=== PATIENT | male | born 1970 ===

== ENCOUNTER 2022-01-26 09:58 | Outpatient (CLI) | payer OTHER, SELFPAY ==
--- OUTSIDE RECORDS SUMMARY | 2022-01-26 09:59 | XMS_ITS | Clinical Summary ---
:1970 Author Organization [facility] [facility] [place] [address] Care Team Providers Name Role Phone Jose Orellana MD Primary Care Provider [phone] Pratik Richardson MD Unavailable Allergies No known active allergies Medications Medication Sig Dispensed Refills Start Date End Date Status calcium carbonate Use daily in 0 11/23/2014 Active CHEWABLE (TUMS) 750 mg the evening as chewable needed tabletIndications: Reflux esophagitis, Gastroesophageal reflux disease with esophagitis, Diaphragmatic hernia without mention of obstruction or gangrene Ribocaine (Riboflavin Use as directed 8 mL 0 04/25/2020 Active 0.6%/Proparacaine for procedure. 0.05%/RAQUEL) Store upright. Refrigerate. Expires: . . omeprazole (PRILOSEC) 40 Take 1 Capsule 90 Capsule 3 2 Active mg Delayed-Release (40 mg) by capsuleIndications: mouth once Gastroesophageal reflux daily before a disease with esophagitis meal. without hemorrhage, Diaphragmatic hernia without obstruction and without gangrene Active Problems Problem Noted Date Gastroesophageal reflux disease with esophagitis witho ut hemorrhage 11/23/2014 Diaphragmatic hernia without mention of obstruction or gangrene 05/20/2011 Resolved Problems Problem Noted Date Resolved Date Reflux esophagitis 11/23/2014 04/08/2017 GERD (gastroesophageal reflux disease) 05/20/2011 0 11/23/2014 Overview: EGD 04/2011 esophageal ulceration, repeat EGD in 2 years EGD 03/2016 eosinophilic esophagitis, con tinue omeprazole, no follow-up upper endoscopy needed Immunizations Name Administration Dates Next Due Td (Age >=7 Years) 12/05/2001 Tdap 01/02/2016 Family History Medical History Relation Name Comments Good Health Brother step brother Esophageal cancer Father simón joel - at 61 [facility] Health Mother born 1952 [place]'s esophagus Sister Relation Name Status Comments Brother Father Mother Sister Social History Tobacco Use Types Packs/Day Years Used Date Former Smoker Cigarettes 0.75 25 Quit: 03/23/19 03 Smokeless Tobacco: Former User Tobacco Cessation: Counseling Given: Yes Alcohol Use Standard Drinks/Week Comments Yes 3.3 (1 standard drink = 0.6 oz pure alco hol) Sex Assigned at Date Recorded Not on file Obstetrics History Last Filed Vital Signs Vital Sign Reading Time Taken Comments Blood Pressure 127/79 05/02/2018 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 Pulse 80 05/02/2018 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 Temperature 36.3 ??C (97.3 ??F) 05/02/2018 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 Respiratory Rate - - Oxygen Saturation 95% 05/02/2018 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 Inhaled Oxygen Concentration - - Weight 100.7 kg (222 lb) 05/02/2018 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 Height 179.7 cm (5' 10.75) 05/02/2018 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 Body Mass Index 31.18 05/02/2018 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 Plan of Treatment Health Maintenance Due Date Last Done Comments HIV for age 15-65 09/16/1987 Hepatitis C screening for age 0709/15/1990 18-79 Colonoscopy through age 75 2017 Depression screening for age 12+ 04/08/2018 04/08/2017, 04/2015 BMI (ht and wt on same day) for 05/03/2019 05/02/2018, 09/2017, age 18+ 03/13/2016, Additional history exists COVID-19 vaccine series (3 - 08/27/2020 07/02/2020, 021 Booster for Pfizer series) Lipids for age 45-75 01/01/2021 01/02/2016 Influenza for age 9-49 10/30/2021 Tetanus booster 01/01/2026 01/02/2016, 12/05/2001 Tdap Completed 01/02/2016 Results Not on filefrom Last 3 Months Insurance Payer Benefit Plan / Subscriber ID Effective Dates Phone Addre ss Type Group [facility] [id number] 2019-Present [address] [address] [place] [id number] (Home) W [phone] [place] (Work) [id number] Care Teams [employer]ricator Relationship Specialty Start Date End Date Jose Orellana MD PCP - General 08/11/06 [address] [place] [address] Pratik Richardson MD Gastroenterology Gastroenterology 05/05/11 [address] [facility] [place] [address]
[2022-01-26 13:56] LABS: Chloride* 105 mmol/L (96-114); Potassium* 4.3 mmol/L (3.6-5.1); Sodium* 142 mmol/L (135-149)
[2022-01-26 13:59] LABS: Carbon Dioxide* 27 mmol/L (20-32); Estimated Glomerular Filt Rate 92 ml/min
[2022-01-26 14:00] LABS: Blood Urea Nitrogen* 11 mg/dL (5-24); Calcium* 9.5 mg/dL (8.4-10.6); Glucose* 105 mg/dL (60-115)
== END 2022-01-26 09:59 | disposition home or self-care (01) ==
PROVIDERS: PCP Family Medicine; Visit Provider Family Medicine
DX: Z01.818 Encounter for other preprocedural examination (principal)
CPT/HCPCS: 80048

== ENCOUNTER 2022-01-27 11:43 | Outpatient (CLI) | payer OTHER, SELFPAY ==
--- OUTSIDE RECORDS SUMMARY | 2022-01-27 11:45 | XMS_ITS | Clinical Summary ---
:1970 Author Organization [employer] [facility] [place] [address] Care Team Providers Name Role Phone Jose Orellana MD Primary Care Provider [phone] Pratik Richardson MD Unavailable Allergies No [...] Comments Blood Pressure 127/79 05/02/2018 9:[address] Pulse 80 05/02/2018 9:[address] Temperature 36.3 ??C (97.3 ??F) 05/02/2018 9:[address] Respiratory Rate - - Oxygen Saturation 95% 05/02/2018 9:[address] Inhaled Oxygen Concentration - - Weight 100.7 kg (222 lb) 05/02/2018 9:[address] Height 179.7 cm (5' 10.75) 05/02/2018 9:[address] Body Mass Index 31.18 05/02/2018 9:[address] Plan of Treatment Health Maintenance Due Date [...] Effective Dates Phone Addre ss Type Group [facility] [id number] 2019-Present [address] [address] [place] [id number] (Home) W [phone] [place] (Work) [id number] Care Teams Jig Operator Relationship Specialty Start Date End Date Jose Orellana MD PCP - General 08/11/06 [address] [place] [address] Pratik Richardson MD Gastroenterology Gastroenterology 05/05/11 [address] [facility] [place] [address]
--- NOTE | 2022-01-27 13:30 | W.ANESCHARGE ---
Anesthesia Charges Start Date/Time Anesthesia Start Date: 01/27/22 Anesthesia Start Time: 12:40 Stop Date/Time Anesthesia Stop Date: 01/27/22 Anesthesia Stop Time: 13:30 Summary Emergency: No
--- NOTE | 2022-01-27 13:35 | W.ANESCHARGE ---
Anesthesia Charges Start Date/Time Anesthesia Start Date: 01/27/22 Anesthesia Start Time: 12:40 Stop Date/Time Anesthesia Stop Date: 01/27/22 Anesthesia Stop Time: 13:30 Summary Emergency: No
== END 2022-01-27 11:44 | disposition home or self-care (01) ==
LOC: OP CLINIC 11:44
PROVIDERS: PCP Family Medicine; Visit Provider Surgery
DX: Z12.11 Encounter for screening for malignant neoplasm of colon; K64.9 Unspecified hemorrhoids; K44.9 Diaphragmatic hernia without obstruction or gangrene; K31.7 Polyp of stomach and duodenum; K21.9 Gastro-esophageal reflux disease without esophagitis; K22.89 Other specified disease of esophagus
CPT/HCPCS: 00813; 43239; 45378; 88305; J2704; J3490

== ENCOUNTER 2022-12-18 08:22 | Outpatient (CLI) | payer OTHER, SELFPAY | END 2022-12-18 08:23 | disposition home or self-care (01) | PROVIDERS: PCP Family Medicine; Visit Provider Family Medicine | DX: Z12.5 Encounter for screening for malignant neoplasm of prostate (principal); Z13.220 Encounter for screening for lipoid disorders | CPT/HCPCS: 80048; 80061; 84153 ==

== ENCOUNTER 2024-05-25 11:56 | Outpatient (CLI) | payer OTHER, SELFPAY | END 2024-05-25 11:57 | disposition home or self-care (01) | PROVIDERS: PCP Family Medicine; Visit Provider Family Medicine | DX: Z01.818 Encounter for other preprocedural examination (principal); Z12.5 Encounter for screening for malignant neoplasm of prostate | CPT/HCPCS: 80048; 85025; G0103 ==